=== PATIENT | male | born 1975 | race Two or more races ===

== ENCOUNTER 2023-07-01 12:23 | Emergency (ER) | payer OTHER ==
[~2023-07-01] VITALS: Ht 177.8 cm; Wt 95.3 kg
[2023-07-01] MEDS ORDERED: TOPROL XL25 M1 (12:51)
[2023-07-01] MEDS ORDERED: ACETAMINOPHEN 500 MG GEL..CAP PO ONE (17:15)
[2023-07-01] MEDS ORDERED: ORPHENADRINE CITRATE 100 MG TABLET PO ONE (17:15)
[2023-07-01] MEDS ORDERED: KETOROLAC TROMETHAMINE 60 MG VIAL IM ONE (17:15)
== END 2023-07-01 17:24 | disposition home or self-care (01) ==
LOC: ER 12:24
DX: M54.10 Radiculopathy, site unspecified (principal)